=== PATIENT | male | born 1985 | race African-American/Black ===

== ENCOUNTER 2020-09-17 09:08 | Emergency (ER) | payer SELFPAY ==
[~2020-09-17] VITALS: Ht 165.1 cm; Wt 75.0 kg
[2020-09-17 09:20] VITALS: BP 122/57
--- NOTE | 2020-09-17 09:42 | PHYS DOC ---
Past Medical History Past Medical History: Hypertension Past Surgical History: No Surgical History Smoking Status: Current Every Day Smoker Alcohol Use: None Drug Use: Marijuana General Adult EDM: Chief Complaint: BACK PAIN OR INJURY Problems: (1) Back pain HPI: HPI: 35-year-old male presents to the emergency department complaining of left-sided back pain acute on chronic. He reports that yesterday he was lifting a heavy box when he had back pain on the left lateral aspect of his back that radiated down to his left thigh and leg. He has had the symptoms in the past that resolved spontaneously. He reports that he was also shoveling gravel recently and had an exacerbation of the left-sided back pain. The patient denies recent weight loss, fever, saddle anesthesia, bowel or bladder incontinence, abdominal pain, syncope, weakness or numbness, chest pain, shortness of breath, or any other medical complaints. Also denies IV drug use, history of spinal surgery, history of cancer, or immunodeficiency history. He is a person under investigation for Covid because his significant other recently tested positive Review of Systems: Review of Systems: ROS is otherwise negative except what was mentioned in the HPI Heart Score: C/O Chest Pain: No Current Medications: My Orders - MICAELA PHIPPS DO Procedure Category Date Status Time Ketorolac 15mg Vial PHA 09/17/20 Logged (Toradol 15mg Vial) 09:45 Diazepam (Valium) PHA 09/17/20 Logged 09:45 Allergies: Allergies: Allergies Coded Allergies Type Severity Reaction Last Updated Verified No Known Drug Allergies 09/17/20 No Physical Exam: PE: Constitutional: No acute distress, non-toxic appearance. HENT: Atraumatic, bilateral external ears normal, nose normal. Eyes: PERRLA, EOMI, conjunctiva normal, no discharge. Neck: Normal range of motion, supple, nontender cervical spine, no stridor. Cardiovascular: Heart rate regular rhythm. 2+ radial pulses Lungs & Thorax: No respiratory distress, symmetrical expansion. Abdomen: Soft, no tenderness Skin: Warm, dry, no rash. Extremities: No tenderness, no cyanosis, ROM intact, no edema. Back: No point or midline T or L-spine tenderness, left lateral paravertebral lumbar area with palpable spasm, overlying skin is unremarkable, no CVA tenderness Neurologic: Alert and oriented X 3, 5/5 strength in lower extremities bilaterally, L3-S1 dermatomes are intact and equal bilaterally, no focal deficits noted. Non ataxic gait. GCS 15. Psychologic: Affect normal, judgment normal, mood normal. Current Patient Data: Vital Signs: Vital Signs Date Time Temp Pulse Resp B/P (MAP) Pulse Ox O2 Delivery O2 Flow Rate FiO2 09/17/20 09:20 97.7 74 18 122/57 97 Room Air 97.7 Course & Med Decision Making: Course & Med Decision Making Patient without red flag symptoms for back pain, exam is largely unremarkable except for a spasm. He is not driving home. He was given Toradol and Valium in the emergency department. Instructed to follow-up with his primary care provider along with return to the emergency department if his symptoms worsen or if he has incontinence, increased pain, inability to walk or any further symptoms. Departure Departure Impression: Primary Impression: Sciatica of left side Disposition: HOME / SELF CARE / HOMELESS Condition: STABLE Referrals: NO PCP (PCP) Patient Instructions: Sciatica, [id number] Additional Instructions: You were seen in the emergency department for back pain. Your pain could be musculoskeletal in nature and could be from a pulled or strained muscle. The pain should improve with NSAID medications (ibuprofen, Aleve, etc.), stretching, and light activity. You may also use Tylenol for your back pain (no more than 3000 mg per day). Take as directed by instructions. Do not take NSAID medications if you have kidney disease. Do not take Tylenol if you have liver disease. If it does not improve, you should follow up with a primary care doctor. - Use stretching and strengthening exercises at least twice per day, continue to complete physical activity such as walking, and alternate ice and heat (ie heating pad) to the area of pain. - Return to the Emergency Department should your symptoms worsen, or should you develop a fever, change in bowel or bladder habits, weakness or numbness in your lower extremities, inability to walk, or any concern you feel warrants further evaluation. - Take Aleve or Ibuprofen, and Tylenol as needed for your pain. - You may use over the counter lidocaine patches as needed for pain. - Avoid taking narcotic medications for back pain. - Follow up with your doctor within 1-2 weeks if your symptoms are not improving. MICAELA PHIPPS DO Sep 17, 2020 09:41
[2020-09-17] MEDS ORDERED: KETOROLAC 15 MG/ML VIAL. IM ONE (09:45)
[2020-09-17] MEDS ORDERED: diazePAM 5 MG TABLET PO ONE (09:45)
== END 2020-09-17 09:57 | disposition home or self-care (01) ==
LOC: ER 09:08
DX: M54.42 Lumbago with sciatica, left side (principal); I10 Essential (primary) hypertension; F17.200 Nicotine dependence, unspecified, uncomplicated
CPT/HCPCS: 96372; 99283; J1885